=== PATIENT | female | born 1995 | race Caucasian/White ===

== ENCOUNTER 2021-05-22 05:52 | Emergency (ER) | payer OTHER ==
[~2021-05-22] VITALS: Ht 157.5 cm; Wt 110.2 kg
[~2021-05-22 05:52] MED LIST: BETAMETHASONE D TOP; CLARITIN10 MG PO; PEPCID AC20 MG PO; PREDNISONE 20MG20 MG PO
[2021-05-22 07:44] LABS: BASOPHIL 0.3 % (0-2); EOSINOPHIL 0 % (0-5); HCT 41.8 % (37.0-47.0); HGB 14.1 g/dl (12.5-16.0); LYMPHOCYTE 44.9 % (15-48); MCH 28.6 pg (25.0-31.0); MCHC 33.7 g/dL (32.0-36.0); MCV 84.8 fL (78.0-100.0); MONOCYTE 6.1 % (0-12); MPV 12.2 fL (6.0-9.5); NEUTROPHIL 48.2 % (41-80); NRBC 0; PLT 160 K/uL (150-400); RBC 4.93 M/uL (4.20-5.40); RDW 13.2 % (11.5-14.0)
[2021-05-22 07:47] LABS: WBC 3.9 K/uL (4.0-10.5)
[2021-05-22 08:11] LABS: ALBUMIN 3.4 g/dL (3.4-5.0); BILIRUBIN - TOTAL 0.6 mg/dL (0.2-1.0); BUN/CREAT RATIO (CALC) 12.6 RATIO; CREATININE 0.87 mg/dL (0.51-0.95); GLOBULIN (CALCULATION) 4.5 g/dL; POTASSIUM 3.7 mmol/L (3.5-5.1); TOTAL PROTEIN 7.9 g/dL (6.4-8.2)
[2021-05-22] MEDS ORDERED: MEDROL 4MG DOSEP4 MG PO (09:41)
[2021-05-22] MEDS ORDERED: TESSALON PERLE100 M1 PO (09:41)
[2021-05-22] MEDS ORDERED: VENTOLIN HFA18 GM INH (09:41)
[2021-05-22] MEDS ORDERED: ONDANSETRON ODT4 MG PO (09:41)
[2021-05-22] MEDS ORDERED: NAPROXEN500 MG PO (09:41)
[2021-05-22] MEDS ORDERED: ZPAK PO (09:44)
[2021-05-22 15:46] LABS: C-REACTIVE PROTEIN 2.3 mg/dL (<=0.90)
== END 2021-05-22 11:21 | disposition home or self-care (01) ==
LOC: FER 05:52
PROVIDERS: Emergency Medicine
DX: U07.1 COVID-19 (principal)
CPT/HCPCS: 36415; 71045; 80053; 82728; 83615; 84145; 85025; 86140; J2405; J7030; M0243; Q0244; U0002